=== PATIENT | male | born 1955 | race Caucasian/White ===

== ENCOUNTER 2023-03-13 14:29 | Emergency (ER) | payer MEDICARE, SELFPAY ==
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
[2023-03-13 15:18] VITALS: BP 114/85; PULSE 60; RESP 18; TEMP 36.8; O2SAT 96; BMI 25.8
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
[2023-03-13] MEDS: Lidocaine HCl 2 % 20 ML VIAL SUBCUT (18:01)
== END 2023-03-13 19:00 | disposition home or self-care (01) ==
PROVIDERS: Emergency Provider Emergency Medicine
DX: S01.01XA Laceration without foreign body of scalp, initial encounter (principal); S00.12XA Contusion of left eyelid and periocular area, initial encounter; V18.0XXA Pedal cycle driver injured in noncollision transport accident in nontraffic accident, initial encounter; Y93.55 Activity, bike riding; Y92.9 Unspecified place or not applicable; Y99.9 Unspecified external cause status
CPT/HCPCS: 12002; 70450; 70486; 99282; 99284

== ENCOUNTER 2023-03-20 10:51 | Emergency (ER) | payer MEDICARE, SELFPAY ==
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
[2023-03-20 11:10] VITALS: BP 110/67; PULSE 52; RESP 16; TEMP 36.4; O2SAT 98; BMI 25.8
== END 2023-03-20 11:22 | disposition home or self-care (01) ==
PROVIDERS: Emergency Provider Emergency Medicine Emergency Medical Services
DX: Z48.02 Encounter for removal of sutures (principal)
CPT/HCPCS: 99282